=== PATIENT | female | born 1975 | race African-American/Black ===

== ENCOUNTER 2017-11-21 08:02 | Emergency (ER) | payer SELFPAY ==
[2017-11-21] MEDS ORDERED: Ketorolac Tromethamine 60 MG/2 ML VIAL ONE (08:23)
== END 2017-11-21 08:47 | disposition home or self-care (01) ==
LOC: ERS 08:02
DX: M75.41 Impingement syndrome of right shoulder (principal); F31.9 Bipolar disorder, unspecified
CPT/HCPCS: 96372; J1885

== ENCOUNTER 2018-02-26 09:27 | Emergency (ER) | payer SELFPAY ==
[2018-02-26] MEDS ORDERED: Ibuprofen 800 MG TAB ONE (09:43)
== END 2018-02-26 09:53 | disposition home or self-care (01) ==
LOC: ERS 09:27
DX: G56.01 Carpal tunnel syndrome, right upper limb (principal); K13.0 Diseases of lips; F31.9 Bipolar disorder, unspecified
CPT/HCPCS: 99283

== ENCOUNTER 2019-04-22 13:09 | Emergency (ER) | payer SELFPAY ==
--- NOTE | 2019-04-22 13:25 | RAD ---
Exam:4 views left knee HISTORY: Pain. COMPARISON: None FINDINGS: No fracture. No malalignment. No joint effusion. Joint spaces are preserved. IMPRESSION: Unremarkable left knee radiographs
[2019-04-22] MEDS ORDERED: Ketorolac Tromethamine 30 MG/ML VIAL ONE (13:37)
== END 2019-04-22 14:00 | disposition home or self-care (01) ==
LOC: ERS 13:09
DX: M25.562 Pain in left knee (principal); F31.9 Bipolar disorder, unspecified
CPT/HCPCS: 96372; J1885